=== PATIENT | male | born 1995 | race Caucasian/White ===

== ENCOUNTER 2020-03-06 16:48 | Emergency (ER) | payer SELFPAY ==
[2020-03-06 17:00] VITALS: BP 146/78; PULSE 81; RESP 16; TEMP 37; O2SAT 99
--- NOTE | 2020-03-06 17:09 | ED.GENADULT ---
HPI - General Adult General Chief complaint: Eye Problems Stated complaint: Cut on eye Time Seen by Provider: 03/06/20 17:10 Source: patient Mode of arrival: ambulatory Limitations: no limitations History of Present Illness HPI narrative: 24-year-old male patient presents to the [facility] with complaints of left eye pain. Patient states that he was weed eating and hit a rock and it came up and hit him into the left eye. Patient states that it took him down to his knees and states that his vision went white. Patient states he did go inside and rinse out the left eye. Patient states that his vision is getting better since the initial trauma. Denies take anything for pain prior to arrival. Related Data Allergies Allergy/AdvReac Type Severity Reaction Status Date / Time No Known Allergies Allergy Verified 07/18/18 11:09 Review of Systems Review of Systems: Narrative: CONSTITUTIONAL: Denies fever, chills, or sweats. EYES: Denies visual changes, redness, or discharge. Positive left eye pain ENT: Denies rhinorrhea, congestion, sore throat, or otalgia. CARDIOVASCULAR: Denies chest pain, palpitations, or edema. RESPIRATORY: Denies cough or dyspnea. GASTROINTESTINAL: Denies abdominal pain, nausea, vomiting, or diarrhea. GENITOURINARY: Denies dysuria or hematuria. SKIN: Denies rash or itching. MUSCULOSKELETAL: Denies back pain, joint pain, or myalgia. NEUROLOGIC: Denies headache, numbness, or weakness. PSYCHIATRIC: Denies anxiety or depression. [facility] Family History Family History Other Family history of coronary artery disease Comments At the time of my signature I agree with nursing past medical history, surgical, social, and family history. There is no relevant family history pertinent to the presenting complaint. Exam Narrative: Exam Narrative: GENERAL: Well-appearing, well-nourished, and in no acute distress. HEAD: Normocephalic, atraumatic. EYES: PERRLA and EOM intact without limitation or complaint of pain, no periorbital soft tissue swelling ,no erythema, warmth or tenderness noted, no obvious deformity. No crusting or swelling.no tearing or draining.No photophobia. No nystagmus No FB or lesion on lid eversion. Corneas grossly clear, no obvious FB or hyphens/hypopyon. injection to sclera to the inner canthus and tenderness. Lids and lashes clear. Patient does have a small little red bairon on the top lid towards the inner eye. ENT: Nares clear, no rhinorrhea or epistaxis. Mucous membranes moist. NECK: Supple. No lymphadenopathy CHEST: Clear to auscultation. No respiratory distress. HEART: Regular rate and rhythm. No murmur heard. Normal peripheral pulses. ABDOMEN: Soft, nontender, nondistended, normal active bowel sounds. EXTREMITIES: Normal range of motion. No edema. SKIN: Warm, dry, no rash. NEURO: Alert and oriented x4, GCS 15. Cranial nerves II through XII grossly intact. No focal neurological deficits. Normal muscle strength and tone. Normal deep tendon reflexes. Negative Babinski, normal finger to nose coordination he had normal heel to alvarado glide. Speech is clear. Normal gait. Negative Romberg and no pronator drift Course Vital Signs Vital signs: Vital Signs Temperature 37.0 C 03/06/20 17:00 Pulse Rate 81 03/06/20 17:00 Respiratory Rate 16 03/06/20 17:00 Blood Pressure 146/78 H 03/06/20 17:00 Pulse Oximetry 99 03/06/20 17:00 Temperature 37.0 C 03/06/20 17:00 Pulse Rate 81 03/06/20 17:00 Respiratory Rate 16 03/06/20 17:00 Blood Pressure 146/78 H 03/06/20 17:00 Pulse Oximetry 99 03/06/20 17:00 Vital signs reviewed. The patient has been informed that they may have pre-hypertension or Hypertension based on a BP reading in the department. I recommend that the patient call the primary care provider listed on their discharge instructions or a physician of their choice this week to arrange follow up for further evaluation of possib
--- NOTE | 2020-03-06 17:17 | PC.NURSE ---
1700 eye kit at bedside
== END 2020-03-06 17:23 | disposition home or self-care (01) ==
PROVIDERS: Emergency Provider Nurse Practitioner Family
DX: S05.12XA Contusion of eyeball and orbital tissues, left eye, initial encounter (principal); W22.8XXA Striking against or struck by other objects, initial encounter; Y93.H2 Activity, gardening and landscaping
CPT/HCPCS: 99213; A9270; G0463